=== PATIENT | female | born 1960 | race Caucasian/White ===

== ENCOUNTER 2025-03-06 07:23 | Outpatient (REF) | payer MEDICARE, MEDICAID, SELFPAY ==
--- NOTE | ~2025-03-06 | XR_ITS ---
EXAMINATION: XR PELVIS 1-2 VIEWS HISTORY: M25.559 - Pain in unspecified hip COMPARISON: There are no prior studies available for comparison. FINDINGS: Two views of the pelvis are submitted. Osseous mineralization is normal. There is no fracture or dislocation. There is severe osteoarthritis of the right hip with joint space narrowing, osteophyte formation, and remodeling of the femoral head. The left hip joint space is maintained. The soft tissues are unremarkable. XR/XR pelvis 1-2V IMPRESSION: Severe osteoarthritis of the right hip. Electronically signed by: Fco Sawyer MD 03/06/2025 11:21 AM EDT
--- OUTSIDE RECORDS SUMMARY | 2025-03-06 07:25 | XMS_ITS ---
Author Name [facility] Organization Unknown Encounters Encounter Type Encounter Reason Primary Diagnosis Location Date Ambulatory [facility] [place] 01/08/2025
== END 2025-03-06 07:24 | disposition home or self-care (01) ==
LOC: HO.HOSX 07:23
PROVIDERS: Visit Provider Orthopaedic Surgery
DX: M16.11 Unilateral primary osteoarthritis, right hip (principal); M25.551 Pain in right hip
CPT/HCPCS: 72170; 99202

== ENCOUNTER 2025-03-06 10:34 | Outpatient (AMB) | payer MEDICARE, MEDICAID, SELFPAY ==
--- NOTE | 2025-03-06 10:50 | A.OFFVIS_ITS ---
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 Patient reports that she has had on going pain since 1999. Her pain is felt on the Lateral aspect of the hip with occasional lower back pain that radia maurizio down the leg to the knee. She has occasional numbness with No tingling. She has Previously seen another Orthopedics provider who offered her no treatment. No history of injections or therapy. Currently she is taking Tramodol, Gabapentin and as well naproxen which offer her mild relief. Pain has increased over the last few years and is exacerbated with standing, walking, stairs and activities of daily living. She finds relief with laying down on the right side and sitting. 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 Patient reports that she has had on going pain since 1999. Her pain is felt on the Lateral aspect of the hip with occasional lower back pain that radiates down the leg to the knee. She has occasional numbness with No tingling. She has Previously seen another Orthopedics provider who offered her no treatment. No history of injections or therapy. Currently she is taking Tram odol, Gabapentin and as well naproxen which offer her mild relief. Pain has increased over the last few years and is exacerbated with standing, walking, stairs and activities of daily living. She finds relief with laying down on the right side and sitting. She walks with severe antalgia ( sttoped gait and a walker) and feels that the quality of her life is poor. [facility] Surgical History (Updated 03/06/25 @ 11:03 by MANDY Zeng-Jacque) History of hysterectomy (~10/2023) Social History (Updated 03/06/25 @ 11:03 by RYANN Zeng) Current occupational status: retired Physical Exam Extrem Other: Walks with severely stooped gait and right hip ROM is difficult to assess given pain and body habitus but it is minimal and with pain. uses a walker Firing EHL/TA/GC SILT RLE DP+2 Results Reviewed Results Reviewed: I personally reviewed relevant radiographs. Severe OA right hip with proximal migration and femoral head collapse Assessment & Plan Assessment & Plan (1) Osteoarthritis of right hip: Code(s): M16.11 - Unilateral primary osteoarthritis, right hip Category: Medical Plan: This is a very pleasant 64-year-old woman who delayed many years before seeking medical assistance for her right hip. She did see a surgeon many years ago who told her there was nothing he could do and that escalated her from pursuing a 2nd opinion. She finally comes in today and is miserable. She can not walk and she feels the quality of her life is extremely poor. Her radiographs show proximal migration of the femoral head with an eroded acetabulum and a question of posterior head subluxation although I suspect it is projectional. I will order a CT scan. She will follow up with me after that is done and we will discuss further. Orders: Orders XR pelvis 1-2V 03/06/25 M25.559 - Pain in unspecified hip CT hip RT wo IV con Today M16.11 - Unilateral primary osteoarthritis, right hip Coding Level of Care Code New Pt Level 4 (84709) Diagnoses Osteoarthritis of right hip M16.11
== END 2025-03-06 11:27 | disposition home or self-care (01) ==
LOC: HO.HOS 10:35
PROVIDERS: PCP Physician Assistant Medical; Visit Provider Orthopaedic Surgery
DX: M16.11 Unilateral primary osteoarthritis, right hip (principal)
CPT/HCPCS: 99204

== ENCOUNTER → 2025-03-06 10:40 | Outpatient (BNV) | payer MEDICARE, MEDICAID, SELFPAY | PROVIDERS: Visit Provider Radiology Diagnostic Radiology | DX: M16.11 Unilateral primary osteoarthritis, right hip (principal) | CPT/HCPCS: 72170 ==

== ENCOUNTER 2025-04-28 07:11 | Outpatient (REF) | payer MEDICARE, MEDICAID, SELFPAY ==
--- NOTE | ~2025-04-28 | CT_ITS ---
EXAMINATION: CT HIP WITHOUT CONTRAST, RIGHT CLINICAL INFORMATION: Unilateral primary osteoarthritis on the right hip. COMPARISON: Collated to pelvis x-ray dated March 06, 2025. TECHNIQUE: Multidetector volumetric imaging was obtained through the right hip without contrast material. Multiplanar reformatted images were submitted in coronal and sagittal planes. This CT examination was performed using dose optimization techniques as appropriate, variously including the following: *Automated exposure control *Adjustment of mA and/or kV according to patient size (this includes techniques or standardized protocols for targeted exams where dose is matched to indication/reason for exam; i.e. extremities or head) *Use of iterative reconstruction technique DLP: 563 mGy centimeter. FINDINGS: There is subchondral cyst formation and sclerosis along the articular surface of the acetabulum and femoral head with volume loss involving mostly the femoral head subcapital region with the marginal osteophyte formation both anterior and posterior: The acetabulum. There is joint space narrowing. No gross joint effusion detected by CT. There is fatty atrophy of the muscles, right hip. There is sclerosis of the sacroiliac joint and vacuum phenomenon. No acute cortical disruption. No lytic or blastic lesions. CT/CT hip RT wo IV con IMPRESSION: Severe osteoarthrosis/osteoarthritis, right coxofemoral joint. Electronically signed by: Israel Ayala MD 04/28/2025 09:09 AM EDT
== END 2025-04-28 07:12 | disposition home or self-care (01) ==
LOC: HO.CT 07:11
PROVIDERS: Visit Provider Orthopaedic Surgery
DX: M16.11 Unilateral primary osteoarthritis, right hip (principal)
CPT/HCPCS: 73700

== ENCOUNTER → 2025-04-28 07:14 | Outpatient (BNV) | payer MEDICARE, MEDICAID, SELFPAY | PROVIDERS: Visit Provider Radiology Diagnostic Radiology | DX: M16.11 Unilateral primary osteoarthritis, right hip (principal) | CPT/HCPCS: 73700 ==

== ENCOUNTER 2025-05-08 08:47 | Outpatient (AMB) | payer MEDICARE, MEDICAID, SELFPAY ==
--- NOTE | 2025-05-08 09:03 | A.OFFVIS_ITS ---
Intake Visit Reasons: OV-Right Hip CT Scan follow up Intake Note: Melisa is a 64 year old female who presents today for a follow up of her Right Hip OA - Ct Done 04/28/25. Today she would like to discuss surgical interventions IMPRESSION: Severe osteoarthrosis/osteoarthritis, right coxofemoral joint. Allergies No Known Allergies Allergy (Verified 03/06/25 10:58) HPI HPI OV-Right Hip CT Scan follow up: Details: Melisa is a 64 year old female who presents today for a follow up of her Right Hip OA - Ct Done 04/28/25. Today she would like to discuss surgical interve ntions. She uses a wheelchair when not at home but at home does limp around. this has been present for years and she has avoided medical care because of her weight. I saw her several weeks ago and ordered a CT as the plain films were difficult to interpret because of body position. The CT was perfromed and she comes in today for eval. She is in a wheelchair but describes being hopeful that she may be able to have her hip treated. She does describe being able to stand and take small steps at home but is severely limited. [facility] Surgical History (Updated 03/06/25 @ 11:03 by Azalea Najera) History of hysterectomy (~10/2023) Social History (Updated 03/06/25 @ 11:03 by Azalea Najera) Current occupational status: retired Physical Exam Exam Exam: pleasant woman in NAD moderate truncal obesity externally rotated right hip with limited and painful ROM. No IR and flexion to 80 Results Reviewed Results Reviewed: I personally reviewed relevant radiographs. There is severe right hip OA. The joint gross architecture is preserved with the arthritic head seated in the acetabulum Assessment & Plan Assessment & Plan (1) Osteoarthritis of right hip: Code(s): M16.11 - Unilateral primary osteoarthritis, right hip Category: Medical Plan: This is a 64 yo F with HTN, asthma and obesity. She is disabled because of the severity of her OA. She uses a wheelchair when out of the house. Her imaging initially suggested proximal migration of the head but CT shows no subluxation. Given the severity of her disease and the extent of her disability I recommendright FLORENTINO. I will need labs and more medical information from her PCP. I explained my recommendation to her. I described the alternatives as well as the details of surgery and the eexp[ected recovery. I spent time discussing the risks with her. I discussed the risks of, but not limited to the risk of pain, infection, dislocation, fracture, LLD, stiffness, need for further surgery as well as potential medical complications such as blood clots, pulmonary embolism and cardiac complications. She understands this and would like to proceed forward accordingly. We will begin the pre operative process. Coding Level of Care Code Est Pt Level 4 (48845) Diagnoses Osteoarthritis of right hip M16.11
--- OUTSIDE RECORDS SUMMARY | 2025-05-08 09:07 | XMS_ITS | Patient Health Record ---
Author Organization [facility] Address [address] [place] [address] Care Team Providers Care Executive Asst Name Role Phone May Driscoll MD, Parisa Primary Care Provider U sanjuana Aguillon MD, [facility] Allergies Allergen (clinical drug ingredient) Drug/Non Drug Allergy documented on EMR Reaction Allergy Type Onset Date Status Information temporarily unavailable seasonal (uncoded) Unknown Allergy Active Information temporarily unavailable Ambien wakes being very tired Drug Allergy Active Information temporarily unavailable aspirin stomach burning Drug Allergy Active Reason For Referral No Information Medications Medication SIG (Take, Route, Frequency, Duration) Notes Start Date End Date Status Vitamin B12 100 mcg 1 tab(s) orally once a day; Duration: 30 day(s) Active Singulair 10 mg 1 tab QPM Acti ve Symbicort 160 mcg-4.5 mcg/inh 2 puff(s) inhaled 2 times a day; Duration: 30 day(s) Activ e albuterol 2.5 mg/3 mL (0.083%) 3 ml inhaled every 4-6 hours as needed; Duration: 30 days Active Glucosamine and Chondroitin with MSM 400 mg-500 mg-250 mg 1 tab(s) orally 3 times a day Active Ventolin HFA CFC free 90 mcg/inh 2 puff(s) inhaled qid prn; Duration: 30 day(s) Active fluticasone nasal 50 mcg/inh 1 spray(s) intranasally once a day; Duration: 30 day(s) Active furosemide 20 mg 1 tab(s) orally once a day; Duration: 30 day(s) Active Vitamin D3 1000 intl units 1 tab(s) oral ly once a day; Duration: 30 day(s) Active gabapentin 300 mg 1 cap(s) orally 3 ti mes a day; Duration: 30 day(s) Active bupropion 150 mg/24 hours 1 tab(s) orall y every 24 hours Active folic acid 1 mg 1 tab(s) orally once a day; Duration: 30 day(s) Active allopurinol 300 mg 1 tab(s) orally Daily Active Immunizations Vaccine Route Administration Date Status Comme nts Influenza ID (IIV3) PF 18 64 LSMV ID Intradermal 08/01/2013 Administered Influenza IM split virus PF >3 (LSMV) Unknown 07/20/2011 Administered Influenza Seasonal (Previously Received) Unknown 07/12/2012 Administered Influenza Seasonal (Previously Received) Unknown 06/02/2014 Administered Influenza Seasonal (Previously Received) Unknown 06/15/2015 Administered Influenza Seasonal (Previously Received) Unknown 06/02/2018 Administered Pneumovax PPV23 (Previously Received) Unknown 06/02/2014 Administered Pneumovax PPV23 LSMV Unknown 07/20/2011 Administered Problems Problem Type SNOMED Code ICD Code Onset Dates Problem Status W/U Status Risk Notes Problem Seasonal allergy (991906639) Environmental and seasonal allergies (J30.89) Active confirmed Problem Obstructive sleep apnea (95036583) Obstructive sleep apnea (G47.33) Active confirmed Problem Uncomplicated severe persistent asthma (093096838) Uncomplicated severe persistent asthma (J45.50) Active confirmed Problem Exacerbation of moderate persistent asthma (disorder) (055717576) Moderate persistent asthma with exacerbation (J45.41) Active confirmed Plan Of Treatment Pending Test Test Name Order Date ICD List 05/02/2016 Insurance Providers Payer Name Payer Address Payer Phone Subscriber Number Group Number Insured Name Patient Relationship to Insured Coverage Start Date Coverage End Date Medicare B-[place] [address] [place] [phone] [id number] JEAN CAMPOS Self - patient is the insured 7 Medicaid- [place] ATTN: ORIGINAL PAPER CLAIMS SUBMISSION S [address] [place] [phone] [id number] JEAN CAMPOS Self - patient is the insured Aetna \T\ Aetna/ Healthcar e [address] [place] [phone] [id number] JEAN CAMPOS Self - patient is the insured 7 Medical (General) History Medical History History ICD Code asthma environmental allergies REM related SAMIR Esophageal reflux hypertension restless leg syndrome migraines insomnia cancer, uterine morbid obesity Lyme Disease depression arthritis in left hip Surgical History Surgery Date(Month/Year) hysterectomy 1993 wisdom teeth extraction Hospitalization History Reason Date(Month/Year) asthma exacerbation 11/2012 pneumonia as a child SOB and Asthma Attack 04/2015 ED- asthma attack via ambulance 05/2015 Janeth rendon/Juanita 08/2017 Heart and Breathing Issues // [facility] 06/2018
--- OUTSIDE RECORDS SUMMARY | 2025-05-08 09:07 | XMS_ITS ---
Author Name [facility] Organization Unknown Encounters Encounter Type Encounter Reason Primary Diagnosis Location Date Ambulatory [facility] [place] 01/08/2025
== END 2025-05-08 10:02 | disposition home or self-care (01) ==
LOC: HO.HOS 08:47
PROVIDERS: Visit Provider Orthopaedic Surgery
DX: M16.11 Unilateral primary osteoarthritis, right hip (principal)
CPT/HCPCS: 99214

== ENCOUNTER → 2025-05-08 08:47 | Outpatient (BNVA) | payer MEDICARE, MEDICAID, SELFPAY | PROVIDERS: Visit Provider Orthopaedic Surgery | DX: Z71.2 Person consulting for explanation of examination or test findings (principal); M16.11 Unilateral primary osteoarthritis, right hip; J45.909 Unspecified asthma, uncomplicated; E66.9 Obesity, unspecified | CPT/HCPCS: 99212 ==

== ENCOUNTER 2025-08-26 08:38 | Outpatient (AMB) | payer MEDICARE, MEDICAID, SELFPAY ==
--- OUTSIDE RECORDS SUMMARY | 2025-08-26 08:58 | XMS_ITS | Clinical Summary ---
Author Organization [facility] Address [address] [place] [address] Care Team Providers Care Cable Armorer Name Role Phone Parisa Padilla MD Primary Care Provider + Parisa Padilla MD Unavailable [phone] Parisa Padilla MD Unavailable [phone] Social History Tobacco Use Types Packs/Day Years [...] of Treatment Not on file Care Teams Cable Armorer Relationship Specialty Start Date End Date Parisa Padilla MD [address] [place] [address] [facility] - General 11/05/21 Parisa Padilla MD [address] [place] [address] 11/05/21 Parisa Padilla MD [address] [place] [address] 11/05/21
--- NOTE | 2025-08-26 09:20 | A.OFFVIS_ITS ---
Intake Visit Reasons: Pre-Op: R FLORENTINO w/NE 09/02/25 Intake Note: Fany is a 65 year old female who presents today for a pre operative for her right total hip arthroplasty 09/03/[address] Yu. Patient was given the pain management form to be completed. Allergies ephedrine (From Tedral) Allergy (Verified 08/26/25 09:21) Vomiting fish derived (fish) Allergy (Verified 08/26/25 09:21) Hives phenobarbital (From Tedral) Allergy (Verified 08/26/25 09:21) Vomiting theophylline (From Tedral) Allergy (Verified 08/26/25 09:21) Vomiting HPI HPI Pre-Op: R FLORENTINO w/NE 09/02/25: Details: The patient is a 65-year-old female with a history of end-stage osteoarthritis of the right hip who is scheduled for a total hip arthroplasty. They have experienced progressive hip pain since 1999. Her pain is described as an 8/10 and worsened by prolonged standing, walking, and stair climbing. Conservative treatments including NSAID and activity modification provided only temporary or minimal relief. The patient reports significant limitations in daily activities and decreased quality of life due to pain and stiffness. No recent history of trauma or infection. They are otherwise in their usual state of health. Of note, the patient does have a past medical history significant for ovarian cancer status post hysterectomy on 10/2023 currently on letrozole. Additionally, she has a past medical history of hypertension, GERD, hiatal hernia, gout, Lyme disease, depression, SAMIR, RA, RLS, vitamin-D deficiency, HLD, obesity and asthma. Of note, CKD was listed in the [facility] preoperative juana mary jo however the patient states that she does not have any kidney disease, does note see a reduction furnace operator and is able to take NSAIDs. The patient was seen at the [facility] preoperative clinic on 07/17/2025 and was found to be optimized with ?no absolute medical contraindications identified to proceeding with the proposed surgery?. ON LICENSE OF [facility] Medical History (Updated 08/05/25 @ 13:51 by Beronica Faria RN) Arthritis Numbness Vitamin D deficiency Asthma Right sided weakness Restless leg syndrome Depression Ovarian cancer, bilateral Sleep apnea Multiple pulmonary nodules History of chemotherapy Lytic bone lesion of femur Insomnia Lyme disease Gout Hiatal hernia Hypercalcemia GERD (gastroesophageal reflux disease) HTN (hypertension) Obesity Carpal tunnel syndrome Bilateral tinnitus Aromatase inhibitor use Abdominal wall seroma Surgical History (Updated 08/05/25 @ 13:51 by Beronica Faria RN) History of wisdom tooth extraction History of esophagogastroduodenoscopy (EGD) H/O colonoscopy Hx of cardiac catheterization (~04/28/22) Hx of appendectomy History of hysterectomy (~10/2023) Social History (Updated 08/26/25 @ 09:21 by Mary Carmen Delarosa) Are you a primary career placement services counselor to a significant other at home: No Do you presently have visiting nurse or other home services: No Alcohol intake: never Patient Tobacco Use Status: Never used Tobacco Current occupational status: retired Current occupation: right hand dominant Review of Systems Const All systems reviewed & are unremarkable except as noted in HPI and below Physical Exam Const General: cooperative, healthy appearing and no acute distress Resp Effort & Inspection: normal respiratory effort and able to speak in complete sentences Extrem Other: Right hip: Externally rotated. Limited internal and external rotation. Flexion to 80. NVI. Psych Appearance: grossly normal Mental Status: mental status grossly normal Attitude: cooperative Assessment & Plan Assessment & Plan (1) Osteoarthritis of right hip: Code(s): M16.11 - Unilateral primary osteoarthritis, right hip Category: Medical Plan I discussed in detail the procedure and what to expect pre and post operatively. We discussed the risks, benefits and alternatives to the surgery as well as the rehabilitation course. The following topics were reviewed in detail with the patient: Risks: Risks include, but are not limited to infection, bleeding, blood clots, nerve injury, ongoing pain, ongoing swelling, ongoing stiffness, perioperative risk of injury to bones and soft tissues, prosthesis loosening or wear, anesthesia related complications, revision surgery, amputation, and mortality. Expected Benefits: Improved function, reduced pain, better quality of life. Alternatives: Continued non-operative treatment, joint injections, bracing, physical therapy or no surgery. Risks of not moving forward with surgery: Progression of joint disease and damage, worsening function, fracture, and/or pain. The patient had ample opportunity to ask questions. All questions were answered to the patient's satisfaction. The patient verbalized understanding and agreed to move forward with right total hip arthroplasty with Dr. Yu. The patient demonstrates understanding of the risks, benefits and alternatives. The surgical consent form was given to the patient for additional review and signed by the patient with myself as a witness. postoperative recovery notes: Lovenox for DVT ppx postop Patient has walker at home Plan to go home with services post operatively Physical therapy: [facility] - will need transportation Orders: Orders Basic Metabolic Panel Today Z01.818 - Encounter for other preprocedural examination Complete Blood Count no Diff Today Z01.818 - Encounter for other preprocedural examination Type and Screen Today Z01.818 - Encounter for other preprocedural examination Coding Level of Care Code Global (87664) Diagnoses Osteoarthritis of right hip M16.11
== END 2025-08-26 10:11 | disposition home or self-care (01) ==
LOC: HO.HOS 08:38
PROVIDERS: Visit Provider Physician Assistant
DX: M16.11 Unilateral primary osteoarthritis, right hip (principal)
CPT/HCPCS: 99024

== ENCOUNTER → 2025-08-26 08:38 | Outpatient (BNVA) | payer MEDICARE, MEDICAID, SELFPAY ==
--- OUTSIDE RECORDS SUMMARY | 2025-08-26 13:55 | XMS_ITS | Patient Health Record ---
Author Organization [facility] Address [address] [place] [id number] Care Team Providers Care Receiving Manager Name Role Phone May Driscoll MD, Parisa Primary Care Provider U sanjuana Aguillon MD, [facility] Allergies Allergen (clinical drug ingredient) Drug/Non [...] Route Administration Date Status Comme nts Influenza IM split virus PF >3 (LSMV) Unknown 07/20/2011 Administered Pneumovax PPV23 [facility] Unknown 07/20/2011 Administered Influenza ID (IIV3) PF 18 64 [facility] ID Intradermal 08/01/2013 Administered Influenza Seasonal (Previously Received) Unknown 07/12/2012 Administered Influenza Seasonal (Previously Received) Unknown 06/02/2014 Administered Influenza Seasonal (Previously Received) Unknown 06/15/2015 Administered Influenza Seasonal (Previously Received) Unknown 06/02/2018 Administered Pneumovax PPV23 (Previously Received) Unknown 06/02/2014 Administered Problems Problem Type SNOMED Code ICD Code Onset Dates Problem Status W/U Status Risk Notes Problem Seasonal allergy (793484072) Environmental and seasonal allergies (J30.89) Active confirmed Problem Obstructive sleep apnea (64652794) Obstructive sleep apnea (G47.33) Active confirmed Problem Uncomplicated severe persistent asthma (913856912) Uncomplicated severe persistent asthma (J45.50) Active confirmed Problem Exacerbation of moderate persistent asthma (disorder) (896238261) Moderate persistent asthma with exacerbation (J45.41) Active confirmed Plan Of Treatment Pending Test Test Name Order Date ICD List 05/02/2016 Insurance Providers Payer Name Payer Address Payer Phone Subscriber Number Group Number Insured Name Patient Relationship to Insured Coverage Start Date Coverage End Date Medicare [employer] [address] [place] [phone] [id number] JEAN CAMPOS Self - patient is the insured 7 Medicaid- [place] ATTN: ORIGINAL PAPER CLAIMS SUBMISSION S [address] [place] [phone] [id number] JEAN CAMPOS Self - patient is the insured Aetna \T\ Aetna/ Healthcar e [address] [place] [id number] JEAN CAMPOS Self - patient is [...] rendon/Juanita 08/2017 Heart and Breathing Issues // [facility] 06/2018
== END ==
LOC: CF 10:48
PROVIDERS: Visit Provider Physician Assistant
DX: Z01.818 Encounter for other preprocedural examination (principal); M16.11 Unilateral primary osteoarthritis, right hip
CPT/HCPCS: 99212

== ENCOUNTER 2025-09-02 08:00 | Day surgery (SDC) | payer MEDICARE, OTHER, SELFPAY ==
--- OUTSIDE RECORDS SUMMARY | 2025-07-31 15:01 | XMS_ITS | Patient Health Record ---
Author Organization [facility] Address [address] [place] [address] Care Team Providers Care Purchase Price Analyst Name Role Phone May Driscoll MD, Parisa Primary Care Provider U sanjuana Aguillon MD, [facility] Allergies Allergen (clinical drug ingredient) Drug/Non Drug Allergy documented on EMR Reaction Allergy Type Onset Date Status seasonal (uncoded) Unknown Allergy A ctive zolpidem Ambien wakes being very tired Drug Allergy Active aspirin aspirin stomach burning Drug Allergy A ctive Reason For Referral No Information Medications Medication [...] W/U Status Risk Notes Problem Seasonal allergy (981728168) Environmental and seasonal allergies (J30.89) Active confirmed Problem Obstructive sleep apnea (86145847) Obstructive sleep apnea (G47.33) Active confirmed Problem Uncomplicated severe persistent asthma (954918389) Uncomplicated severe persistent asthma (J45.50) Active confirmed Problem Exacerbation of moderate persistent asthma (disorder) (237097837) Moderate persistent asthma with exacerbation (J45.41) Active confirmed Plan Of Treatment Pending Test Test Name Order Date ICD List 05/02/2016 Insurance Providers Payer Name Payer Address Payer Phone Subscriber Number Group Number Insured Name Patient Relationship to Insured Coverage Start Date Coverage End Date Medicare [place] [address] [place] [phone] [id number] JEAN CAMPOS Self - patient is the insured 7 [place]- [place] ATTN: ORIGINAL PAPER CLAIMS SUBMISSION S [address] [place] [phone] [id number] JEAN CAMPOS Self - patient is the insured Aetna \T\ Aetna/ Healthcar e [address] [place] [id number] JEAN CAMPOS Self - patient is [...] rendon/Juanita 08/2017 Heart and Breathing Issues // [facility] 06/2018
--- OUTSIDE RECORDS SUMMARY | 2025-07-31 15:01 | XMS_ITS | Clinical Summary ---
Author Organization [facility] Address [address] [facility] [address] [place] [address] Care Team Providers Care Activities Aide Name Role Phone Parisa Padilla MD Primary Care Provider + Parisa Padilla MD Unavailable [phone] Parisa Padilla MD Unavailable Social History Tobacco Use Types Packs/Day Years Used Date Smoking Tobacco: Never Assessed Comments Unknown Sex and Gender Information Value Date Recorded Sex Assigned at Female 11/29/2021 5:11 PM EST Legal Sex Female 12:52 AM EST Gender Identity Not on file Sexual Orientation Not on file Last Filed Vital Signs Vital Sign Reading Time Taken Comments Blood Pressure 155/82 10/07/2020 2:20 PM EST Pulse 92 10/07/2020 2:20 PM EST Temperature 36.7 C (98.1 F) 10/07/2020 5:35 PM EST Respiratory Rate 18 10/07/2020 6:13 PM EST Oxygen Saturation 96% 10/07/2020 6:13 PM EST Inhaled Oxygen Concentration - - Weight 145 kg (319 lb 10.7 oz) 10/07/2020 3:50 P M EST Height 162 cm (5' 3.78 ) 10/07/2020 3:50 PM EST Body Mass Index 55.25 10/07/2020 3:50 PM EST Plan of Treatment Not on file Care Teams Activities Aide Relationship Specialty Start Date End Date Parisa Padilla MD [address] [place] [address] [facility] - General 11/05/21 Parisa Padilla MD [address] [place] [address] 11/05/21 Parisa Padilla MD [address] [place] [address] 11/05/21
[2025-08-05 13:17] VITALS: BP 139/72; PULSE 68; RESP 17; O2SAT 95; BMI 40.9
--- NOTE | 2025-08-05 13:43 | HO.ANESPROP2 ---
Documented by User: Violet Sweet NP 09/01/25 07:57 HPI - Anesthesia Eval Consult details Narrative: 65yo F for Right Hip Total Replacement, 09/03/25 Medically optimized per [facility] preop clinic No recent illness No CP/SOB with activity very limited by hip pain 2021 with palps, SOB, dizziness. Full work up by [facility] cardiology. No recurrence since BP meds adjusted. ? of afib, but none identified on testing Asthma: Stable on current inhaler regimen SAMIR: Not using CPAP because less symptoms. Pending repeat PSG Hiatal hernia/GERD: ppi controls Hx ovarian ca s/p hyst, etc 10/2023, on letrozole PMFSH Active Problems Active Problems: All Active Problems Osteoarthritis of right hip (Acute) Past Medical History Medical History Arthritis Numbness Vitamin D deficiency Asthma Right sided weakness Restless leg syndrome Depression Ovarian cancer, bilateral Sleep apnea Multiple pulmonary nodules History of chemotherapy Lytic bone lesion of femur Insomnia Lyme disease Gout Hiatal hernia Hypercalcemia GERD (gastroesophageal reflux disease) HTN (hypertension) Obesity Carpal tunnel syndrome Bilateral tinnitus Aromatase inhibitor use Abdominal wall seroma Family History Family history of problems with anesthesia: No Surgical History Surgical History History of wisdom tooth extraction History of esophagogastroduodenoscopy (EGD) H/O colonoscopy Hx of cardiac catheterization (~04/28/22) Hx of appendectomy History of hysterectomy (~10/2023) History of Problems with Anesthesia: No Social History Social History Are you a primary career center advisor to a significant other at home: No Do you presently have visiting nurse or other home services: No Alcohol intake: never Patient Tobacco Use Status: Never used Tobacco Use of substances other than those prescribed or required for medical reasons: No Advance Directives: No Advance Directives Information Provided: Yes Advance Directives on File: No Patient : No : No Current occupational status: retired Current occupation: right hand dominant Meds Allergies Allergy/AdvReac Type Severity Reaction Status Date / Time ephedrine (From Tedral) Allergy Vomiting Verified 08/26/25 09:21 fish derived (fish) Allergy Hives Verified 08/26/25 09:21 phenobarbital (From Tedral) Allergy Vomiting Verified 08/26/25 09:21 theophylline (From [facility]) Allergy Vomiting Verified 08/26/25 09:21 Home Medications ?Medication ?Instructions ?Recorded ?Confirmed ?Last Taken ?Type albuterol sulfate 90 mcg/actuation 2 puff inhalation Q4-6H PRN 03/06/25 08/05/25 Unknown History aerosol inhaler Shortness Of Breath Or Wheezing allopurinol 100 mg tablet 100 mg PO DAILY 03/06/25 08/05/25 Unknown History atorvastatin 40 mg tablet 40 mg PO BEDTIME 03/06/25 08/05/25 Unknown History bupropion HCl (smoking deter) 150 150 mg PO BID 03/06/25 08/05/25 Unknown History mg tablet,12 hr sustained-release(smoking deterrent) citalopram 40 mg tablet 40 mg PO DAILY 03/06/25 08/05/25 Unknown History fluticasone fur. 200 mcg-umeclid 1 ea inhalation DAILY 03/06/25 08/05/25 Unknown History 62.5 mcg-vilant 25 mcg inhalat.powder (Trelegy Ellipta) gabapentin 300 mg capsule 300 mg PO BEDTIME 03/06/25 08/05/25 Unknown History letrozole 2.5 mg tablet 2.5 mg PO DAILY 03/06/25 08/05/25 Unknown History montelukast 10 mg tablet 10 mg PO DAILY 03/06/25 08/05/25 Unknown History naproxen 250 mg tablet 250 mg PO BID PRN Pain 03/06/25 08/05/25 Unknown History omeprazole 20 mg capsule,delayed 20 mg PO DAILY 03/06/25 08/05/25 Unknown History release spironolactone 100 mg tablet 100 mg PO BID 03/06/25 08/04/25 Unknown History tramadol 50 mg tablet 100 mg PO BID PRN Pain 03/06/25 08/04/25 Unknown History cholecalciferol (vitamin D3) 25 25 mcg PO DAILY 08/04/25 08/05/25 Unknown History mcg (1,000 unit) tablet cyanocobalamin (vitamin B-12) 100 100 mcg PO DAILY 08/04/25 08/05/25 Unknown History mcg tablet fluticasone propionate 50 1 spray intranasal DAILY 08/04/25 08/05/25 Unknown History mcg/actuation nasal spray,suspension furosemide 20 mg tablet 20 mg PO DAILY 08/04/25 08/05/25 Unknown History albuterol sulfate 1.25 mg/3 mL 1.25 mg inhalation Q4-6H PRN 08/05/25 08/05/25 Unknown History solution for nebulization Wheezing polyethylene glycol 3350 17 gram 17 g PO DAILY PRN Constipation 08/05/25 08/05/25 Unknown History oral powder packet (Miralax) Exam Height,Weight and Vital Signs: Height 5 ft 7 in Weight 118.388 kg Last Vital Signs Pulse 68 08/05/25 13:17 Resp 17 08/05/25 13:17 BP 139/72 08/05/25 13:17 Pulse Ox 95 08/05/25 13:17 O2 Del Method Room Air 08/05/25 13:17 Pertinent Lab Results Pertinent Lab Results: Hematology ? ? Event Name? Event Result? Date/Time? WBC 8.3 k/mm3 07/17/25 10:55:00 RBC 4.25 m/mm3 07/17/25 10:55:00 Hgb 13.2 Gm/dL 07/17/25 10:55:00 Hct 39.5 % 07/17/25 10:55:00 MCV 92.9 femtoliters 07/17/25 10:55:00 MCH 31.1 pg 07/17/25 10:55:00 MCHC 33.4 Gm/dL 07/17/25 10:55:00 Platelet Count 299 k/mm3 07/17/25 10:55:00 RDW-SD 40.6 femtoliters 07/17/25 10:55:00 MPV 10.6 femtoliters 07/17/25 10:55:00 Nucleated RBC (Automated) 0 #/100 WBC'S 07/17/25 10:55:00 Abs. NRBC 0 k/mm3 07/17/25 10:55:00 Abs. Neut 5.6 k/mm3 07/17/25 10:55:00 Abs. Lymph 2 k/mm3 07/17/25 10:55:00 Abs. [place] 0.4 k/mm3 07/17/25 10:55:00 Abs. Eo 0.3 k/mm3 07/17/25 10:55:00 Abs. Baso 0 k/mm3 07/17/25 10:55:00 Neut % 67.2 % 07/17/25 10:55:00 Lymph % 24.2 % 07/17/25 10:55:00 [place] % 4.2 %?Low 07/17/25 10:55:00 Eos % 3.4 % 07/17/25 10:55:00 Baso % 0.5 % 07/17/25 10:55:00 Imm Gran 0.5 % 07/17/25 10:55:00 Abs. Imm Gran 0 k/mm3 07/17/25 10:55:00 INR 1 07/17/25 10:55:00 Protime (PT) 11.1 seconds 07/17/25 10:55:00 APTT 23.6 seconds 07/17/25 10:55:00 ? Chemistry ? ? Event Name? Event Result? Date/Time? Sodium 142 mmol/L 07/17/25 10:55:00 Potassium 4.4 mmol/L 07/17/25 10:55:00 Chloride 104 mmol/L 07/17/25 10:55:00 Bicarbonate Level 25 mmol/L 07/17/25 10:55:00 Anion Gap 13 mmol/L 07/17/25 10:55:00 Glucose Level 94 mg/dL 07/17/25 10:55:00 Hemoglobin A1C (Monitoring) 5.3 % 07/17/25 10:55:00 BUN 12 mg/dL 07/17/25 10:55:00 Creatinine-Blood 0.68 mg/dL 07/17/25 10:55:00 Estimated GFR Creatinine 97 ML/MIN/1.73 M2 07/17/25 10:55:00 Calcium 10.2 mg/dL 07/17/25 10:55:00 Lab Results 08/05/25 08/26/25 08/26/25 Range/Units 12:50 10:54 10:57 WBC 9.9 (4.8-10.8) X10*3/uL RBC 4.19 L (4.20-5.50) X10*6/uL Hgb 13.1 (12.0-16.0) g/dl Hct 39.7 (37.0-47.0) % MCV 94.7 (80.0-98.0) fL MCH 31.3 (27.0-33.0) pg MCHC 33.0 (31.0-35.0) g/dl RDW 12.2 (11.0-16.0) % Plt Count 253 (160-400) X10*3/uL MPV 10.1 (9.4-12.3) fL Absolute Nucleated RBC 0.000 (0.0-0.012) X10*3/uL Nucleated RBC % (auto) 0.0 (0.0-0.2) /100WBC Sodium 140 (135-145) mmol/L Potassium 4.8 (3.3-5.1) mmol/L Chloride 105 (96-108) mmol/L Carbon Dioxide 27 (22-29) mmol/L Anion Gap 13 (12-20) BUN 21 H (9-16) mg/dL Creatinine 0.83 (0.5-1.4) mg/dL Estim Creat Clear Calc 89.9 Estimated GFR > 60 Random Glucose 134 H (60-115) mg/dL Calcium 10.2 (8.4-10.2) mg/dL Nasal Screen MRSA (PCR) NEGATIVE (Negative) Nasal S. aureus Screen POSITIVE A (Negative) Nasal MRSA/S.aureus Interp SEE NOTE Blood Type A Positive Antibody Screen NEGATIVE Narrative Narrative: EKG 07/2025 Ventricular Rate: 67 ?BPM Atrial Rate: 67 ?BPM P-R Interval: 164 ?ms QRS Duration: 82 ?ms Q-T Interval: 390 ?ms QTC Calculation(Bazett): 412 ?ms P Bertrand: 62 ?degrees R Bertrand: 35 ?degrees T Bertrand: 76 ?degrees Poor data quality, interpretation may be adversely affected Normal sinus rhythm Normal ECG When compared with ECG of 04-Oct-2023 20:15, No significant change was found?[1] ECHO 2021 Summary Normal LV systolic function (EF 60-65%). No significant regional wall motion abnormalities. Normal LV diastolic function. Normal size LV. Mildly increased LV wall thickness. Normal RV systolic function. Normal RV size. No clinically significant valvular abnormalities. Comparison Comparison is made to the study of November 04, 2020. Improved RV systolic function. Nuc Stress 2021 Summary 1. Myocardial perfusion imaging is abnormal after Regadenoson infusion with a large size mod/severe intensity inferior/inferolateral mostly reversible defect consistent with ischemia with minimal scar and a small/moderate size moderate intensity septal defect consistent with ischemia. 2. LV function is normal with an E.F. of 71% at rest and 74% after IV administration of Regadenoson with normal wall motion and thickening. 3. EKG portion of the stress test is reported separately. Airway Mallampati Class: II TM Dist: >3cm Neck ROM: Full Loose/Missing/Broken Teeth: Yes (Missing throughout, Broken R upper) Heart: RRR Lungs: CTAB Assessment and Plan Assessment Anesthesia Assessment: Anesthesia Plan Discussed and PAT Visit Final Anesthetic Review Family History of Problems with Anesthesia: No History of Problems with Anesthesia: No Documented by User: Victorina Lowery MD 09/02/25 08:32 [facility] Past Medical History Medical History Arthritis Numbness Vitamin D deficiency Asthma Right sided weakness Restless leg syndrome Depression Ovarian cancer, bilateral Sleep apnea Multiple pulmonary nodules History of chemotherapy Lytic bone lesion of femur Insomnia Lyme disease Gout Hiatal hernia Hypercalcemia GERD (gastroesophageal reflux disease) HTN (hypertension) Obesity Carpal tunnel syndrome Bilateral tinnitus Aromatase inhibitor use Abdominal wall seroma Surgical History Surgical History History of wisdom tooth extraction History of esophagogastroduodenoscopy (EGD) H/O colonoscopy Hx of cardiac catheterization (~04/28/22) Hx of appendectomy History of hysterectomy (~10/2023) Social History Social History Are you a primary career center advisor to a significant other at home: No Do you presently have visiting nurse or other home services: No Alcohol intake: never Patient Tobacco Use Status: Never used Tobacco Use of substances other than those prescribed or required for medical reasons: No Advance Directives: No Advance Directives Information Provided: Yes Advance Directives on File: No Patient : No : No Current occupational status: retired Current occupation: right hand dominant Meds Allergies Allergy/AdvReac Type Severity Reaction Status Date / Time ephedrine (From [facility]) Allergy Vomiting Verified 08/26/25 09:21 fish derived (fish) Allergy Hives Verified 08/26/25 09:21 phenobarbital (From [facility]) Allergy Vomiting Verified 08/26/25 09:21 theophylline (From [facility]) Allergy Vomiting Verified 08/26/25 09:21 Home Medications ?Medication ?Instructions ?Recorded ?Confirmed ?Last Taken ?Type albuterol sulfate 90 mcg/actuation 2 puff inhalation Q4-6H PRN 03/06/25 08/05/25 Unknown History aerosol inhaler Shortness Of Breath Or Wheezing allopurinol 100 mg tablet 100 mg PO DAILY 03/06/25 08/05/25 Unknown History atorvastatin 40 mg tablet 40 mg PO BEDTIME 03/06/25 08/05/25 Unknown History bupropion HCl (smoking deter) 150 150 mg PO BID 03/06/25 08/05/25 Unknown History mg tablet,12 hr sustained-release(smoking deterrent) citalopram 40 mg tablet 40 mg PO DAILY 03/06/25 08/05/25 Unknown History fluticasone fur. 200 mcg-umeclid 1 ea inhalation DAILY 03/06/25 08/05/25 Unknown History 62.5 mcg-vilant 25 mcg inhalat.powder (Trelegy Ellipta) gabapentin 300 mg capsule 300 mg PO BEDTIME 03/06/25 08/05/25 Unknown History letrozole 2.5 mg tablet 2.5 mg PO DAILY 03/06/25 08/05/25 Unknown History montelukast 10 mg tablet 10 mg PO DAILY 03/06/25 08/05/25 Unknown History naproxen 250 mg tablet 250 mg PO BID PRN Pain 03/06/25 08/05/25 Unknown History omeprazole 20 mg capsule,delayed 20 mg PO DAILY 03/06/25 08/05/25 Unknown History release spironolactone 100 mg tablet 100 mg PO BID 03/06/25 08/04/25 Unknown History tramadol 50 mg tablet 100 mg PO BID PRN Pain 03/06/25 08/04/25 Unknown History cholecalciferol (vitamin D3) 25 25 mcg PO DAILY 08/04/25 08/05/25 Unknown History mcg (1,000 unit) tablet cyanocobalamin (vitamin B-12) 100 100 mcg PO DAILY 08/04/25 08/05/25 Unknown History mcg tablet fluticasone propionate 50 1 spray intranasal DAILY 08/04/25 08/05/25 Unknown History mcg/actuation nasal spray,suspension furosemide 20 mg tablet 20 mg PO DAILY 08/04/25 08/05/25 Unknown History albuterol sulfate 1.25 mg/3 mL 1.25 mg inhalation Q4-6H PRN 08/05/25 08/05/25 Unknown History solution for nebulization Wheezing polyethylene glycol 3350 17 gram 17 g PO DAILY PRN Constipation 08/05/25 08/05/25 Unknown History oral powder packet (Miralax) Assessment and Plan Assessment Anesthesia Assessment: Chart Reviewed Final Anesthetic Review NPO: Yes ASA Class: III Final Preanesthetic Review: No Changes in Pt Med Stat, Meds/Allgs Chart Reviewed, Consent Obtained/Reviewed and Anes Risks/Benef Reviewed Patient Risk: Intermediate Procedure Risk: Intermediate Anesthetic Plan Anesthetic Plan: GA and Agree w/ Assess. and Plan Disposition: Standard PACU
[2025-08-05 16:06] LABS: MRSA Nasal PCR NEGATIVE (Negative); SA Nasal PCR POSITIVE (Negative)
[2025-08-26 11:40] LABS: Hematocrit 39.7 % (37.0-47.0); Hemoglobin 13.1 g/dl (12.0-16.0); Mean Corpuscular HGB Conc 33.0 g/dl (31.0-35.0); Mean Corpuscular Hemoglobin 31.3 pg (27.0-33.0); Mean Corpuscular Volume 94.7 fL (80.0-98.0); NRBC Abs Auto 0.000 X10*3/uL (0.0-0.012); NRBC Pct Auto 0.0 /100WBC (0.0-0.2); Platelet Count 253 X10*3/uL (160-400); Red Blood Count 4.19 X10*6/uL (4.20-5.50); White Blood Count 9.9 X10*3/uL (4.8-10.8)
[2025-08-26 12:28] LABS: Anion Gap 13 (12-20); Blood Urea Nitrogen 21 mg/dL (9-16); Calcium 10.2 mg/dL (8.4-10.2); Carbon Dioxide 27 mmol/L (22-29); Chloride 105 mmol/L (96-108); Creatinine Clr Calc Pharmacy 89.9; Estimated Glomerular Filt Rate > 60; Potassium 4.8 mmol/L (3.3-5.1); Sodium 140 mmol/L (135-145)
[2025-09-02] VITALS (11 sets, daily range): BP systolic 121–151; BP diastolic 48–93; PULSE 56–68; RESP 9–20; TEMP 36.1–36.8; O2SAT 92–100; BMI 41.1; BMI 40.9
--- NOTE | ~2025-09-02 | XR_ITS ---
EXAMINATION: XR PELVIS CLINICAL INFORMATION: Rt ángela COMPARISON: March 06, 2025 TECHNIQUE: AP view of the pelvis. FINDINGS: There is a metallic right hip prosthesis with an acetabular and femoral component well-seated in the osseous structures without acute cortical disruption or gross malalignment. Skin calvin, right hip. XR/XR pelvis 1-2V IMPRESSION: Status post total right hip arthroplasty prosthesis, satisfactory. Electronically signed by: Israel Ayala MD 09/02/2025 02:05 PM ANNA MARIE BOLANOS
[2025-09-02] MEDS: oxyCODONE HCl ER 10 MG TAB.ER.12H PO ×2 (08:41→20:35)
[2025-09-02 09:06] LABS: Hematocrit 42.5 % (37.0-47.0); Hemoglobin 14.2 g/dl (12.0-16.0)
[2025-09-02] MEDS: Lactated Ringers 1,000 ML 100 ML IVCONT ×2 (09:06→14:28)
--- NOTE | 2025-09-02 10:24 | MHC.SHP ---
Pre-Procedural Eval Section A - 24 Hr Update-Section A only Date of Service: 09/02/25 The patient is an INPATIENT: No Changes since office visit: No Cold of Flu in the past 2 weeks, No New Medical Problems, No Changes in Medication and No Patient answered all questions The patient has been examined within 24 hours of the surgical procedure. The History & Physical has been completed within 30 days and I have reviewed it.: Yes Section B - Complete if H&P > 30 days Chief Complaint: Unilateral primary osteoarthritis, right hip Allergies: Allergies Allergy/AdvReac Type Severity Reaction Status Date / Time ephedrine (From Tedral) Allergy Vomiting Verified 09/02/25 08:56 fish derived (fish) Allergy Hives Verified 09/02/25 08:56 phenobarbital (From Tedral) Allergy Vomiting Verified 09/02/25 08:56 theophylline (From Tedral) Allergy Vomiting Verified 09/02/25 08:56 Plan I have reviewed the history and physical and performed a pertinent physical examination on my patient. No changes have occurred unless specified. Time Spent With Patient Time: Total time managing care of this patient today ____ minutes.
--- NOTE | 2025-09-02 12:40 | PM.OP ---
Brief Operative Note Date of Service: 09/02/25 Pre-op diagnosis: Right hip OA Post-op diagnosis: same Procedure: Right FLORENTINO Implants: Jose Ramon Trident 52/ 2 acetabular screws and lip liner [place] Trident2 #4 132 +0/36 ceramic Surgeon: Khoi Yu MD Anesthesia: GETA and local Was an Client Technologies Specialist used for this Procedure?: Yes Client Technologies Specialist: Geremias Shaver Estimated blood loss (mL): 200 IV fluids (mL): 1,000 Pathology: other Condition: stable Disposition: PACU
--- NOTE | 2025-09-02 16:32 | PHA.MEDREC ---
Addendum entered by Jermaine Livingston bev 09/02/25 16:41: MED REC REVIEWED BY [facility] Original Note: Pharmacy Consult ? Medication Reconciliation reviewed med rec done by nursing. Spoke with pt and she verified the med list. Pt still taking Furosemide and Spironolactone despite no recent claims for any of those; called pt pharmacy ([facility]) and they confirmed pt has not gotten Spironolactone since 12/2023 and they have no claims for Furosemide being filled at their facility (in over 2 years).
--- NOTE | 2025-09-02 20:43 | PM.DS ---
DS: Providers Provider Date of Service: 09/02/25 Date of discharge: 09/04/25 Primary care physician: ARNAUD RICKETTS Consults: 09/02/25 14:01 Consult to Case Management Routine Comment: Rt ángela Consult to Hospitalist Routine Comment: Consulting Provider: [facility] [place] [facility] Reason For Exam: Med management DS: Diagnosis Discharge Diagnosis (1) S/P total right hip arthroplasty: Status: Acute DS: Summary Hospital Course Hospital Course: The patient underwent a successful right total hip arthroplasty on 09/02/[address] Yu, was transferred to PACU and then to the floor to recover. During their stay, their vitals were stable, afebrile at 97.2. Labs were unremarkable, H/H 8.9/27.1. POD 1 he was started on Lovenox 40 mg subQ once a day for DVT ppx, they also received Physical Therapy services twice a day. Physical therapy should include gait training, core and lumbar strength, glute strength. Posterior precautions intact. WBAT. Prior to discharge, her dressing was changed, incision clean dry and intact, new Aquacel dressing applied. The Aquacel dressing should remain intact and dry at all times. Any concerns with the dressing, please contact orthopedic office. No showering. The plan is to be discharged home with vna Time Attestation Discharge Coordination Time (in mins): 30 Quality: Safe Use of Opioids Does Pt have an Active Cancer Diagnosis on the Problem List?: No Quality: Stroke Does the patient have a stroke diagnosis?: No Physical Exam Vital Signs: Vital Signs: Last Vital Signs Temp 97.1 F 09/02/25 20:00 Pulse 66 09/02/25 20:00 Resp 18 09/02/25 20:00 BP 125/55 L 09/02/25 20:00 Pulse Ox 93 09/02/25 20:00 O2 Del Method Room Air 09/02/25 20:00 O2 Flow Rate 2 09/02/25 13:24 BMI result Body Mass Index 40.9 DS: Data Data Completed and Pending Pending studies at discharge: Pending at discharge 09/02/25 12:29 Surgical [PTH] Routine Labs on day of discharge: Laboratory Results - last 24 hr 09/02/25 08:57 Hgb 14.2 Hct 42.5 Discharge Plan Discharge Patient Disposition: Home Health Service Referrals: [facility] [Other] - 1 Week Meuse,Ta-Kristan, PA-C [Physician Drilling Contractor, Orthopedics] - 2 Weeks Referral Note: 09/18/25 14:00 [facility] [place] [facility] Geremias Shaver PA-C Discharge Medications: New celecoxib 200 mg Capsule 200 mg PO BID 30 Days Qty: 60 0RF acetaminophen 325 mg Tablet 650 mg PO Q6H PRN (Reason: Pain, Mild 1-3,Fever,Headache) 30 Days Qty: 240 0RF oxycodone 5 mg Tablet 5 mg PO Q4H PRN (Reason: Pain, Moderate(Pain Scale 4-6)) 7 Days Qty: 42 0RF Rx Instructions: Partial Fill upon patient request. enoxaparin 40 mg/0.4 mL Syringe 40 mg subcut Q24H 42 Days Qty: 16.8 0RF Continued (DME) Folding Front Wheeled walker See Rx Instructions .ROUTE .MEDSUPPLY Qty: 1 0RF Rx Instructions: Duration: 99 days (DME) Raised toilet seat See Rx Instructions .ROUTE .MEDSUPPLY Qty: 1 0RF Rx Instructions: duration - 99 days (DME) SHOWER CHAIR See Rx Instructions .ROUTE .MEDSUPPLY Qty: 1 0RF Rx Instructions: DURATION: LIFETIME cyanocobalamin (vitamin B-12) 100 mcg Tablet 100 mcg PO DAILY furosemide 20 mg Tablet 20 mg PO DAILY fluticasone propionate 50 mcg/actuation [place],Suspension 1 spray INTRANASAL DAILY Rx Instructions: administer into each nostril cholecalciferol (vitamin D3) 25 mcg (1,000 unit) Tablet 25 mcg PO DAILY albuterol sulfate 1.25 mg/3 mL Solution For Nebulization 1.25 mg INHALATION Q4-6H PRN (Reason: Wheezing) polyethylene glycol 3350 [Miralax] 17 gram Powder In Packet 17 g PO DAILY PRN (Reason: Constipation) biotin 1 mg Tablet 1 mg PO DAILY montelukast 10 mg tablet 10 mg PO DAILY letrozole 2.5 mg tablet 2.5 mg PO DAILY Trelegy Ellipta 200-62.5-25 mcg blister with device 1 ea inhalation DAILY albuterol sulfate 90 mcg/actuation HFA aerosol inhaler 2 puff inhalation Q4-6H PRN (Reason: Shortness Of Breath Or Wheezing) atorvastatin 40 mg tablet 40 mg PO BEDTIME omeprazole 20 mg capsule,delayed release(DR/EC) 20 mg PO DAILY allopurinol 100 mg tablet 100 mg PO DAILY citalopram 40 mg tablet 40 mg PO DAILY bupropion HCl (smoking deter) 150 mg tablet extended release 12 hr 150 mg PO BID gabapentin 300 mg capsule 300 mg PO BEDTIME spironolactone 100 mg tablet 100 mg PO BID Discontinued naproxen 250 mg tablet 250 mg PO BID PRN (Reason: Pain) tramadol 50 mg tablet 100 mg PO BID PRN (Reason: Pain) Discharge Orders: Discharge Order (Routine); Ordered 09/04/25 Ordered By: Geremias Shaver Diet: Regular diet Activity on Discharge: Use cane or walker Activity Restrictions/Additional Instructions: Physical Therapy : Hip replacement- WBAT with walker, posterior precautions, gait training Use walker for ambulation Limit stair climbing No shower or tub bath No driving for 6 weeks Continue anticoagulant Keep Aquacel dressing clean, dry and intact. Follow up with orthopedics in 2 weeks -Bandage/Incision Site Care: -Ice 20mins at a time -Make sure you use a towel or cloth on your skin as a barrier -DO NOT remove the bandage -Keep Bandage clean, dry and intact -Do not get the bandage wet: -No tub bath, pools or hot tubs -If there are any concerns regarding the bandage please call orthopedics: [phone] -Hip Precautions: -Refrain from laying on side -No crossing the legs -Avoid low chairs and deep couches -Use supportive shoes with nonslip soles -Physical Therapy: -Patient is WBAT with the use of a walker -Strengthening: Quadriceps and hip muscles -Walking: Gait training and gradually increasing distance with walker -Ankle pumps and incentive spirometry to limit the risk of blood clot -Diet: -Resume regular diet as tolerated. -Drink plenty of fluids and eat a high-fiber foods to avoid constipation -This is a common side effect of pain medication) -Take stool softeners as prescribed -Blood Clot Prevention: -Take the prescribed blood thinner, Lovenox as directed for 6 weeks -Perform ankle pumps and walk frequently with the walker and assistance if needed -Report calf pain, swelling, or shortness of breath immediately Print Language: Uzbek
[2025-09-03] VITALS (9 sets, daily range): BP systolic 109–138; BP diastolic 53–64; PULSE 66–121; RESP 14–20; TEMP 36.1–36.7; O2SAT 90–97
[2025-09-03] MEDS: Lactated Ringers 1,000 ML 100 ML IVCONT ×2 (00:35→22:11)
--- NOTE | 2025-09-03 02:27 | HO.PM.IMCN ---
History of Present Illness Data of Consult Service Date: 09/03/25 Requesting physician: Khoi Yu Primary Care Provider: ARNAUD RICKETTS Reason for consult: medical management Patient is a 65-year-old female with a past medical history significant for HLD, morbid obesity, moderate persistent asthma, ovarian cancer s/p hysterectomy 10/2023 on letrozole, HTN, GERD/hiatal hernia, gout, Lyme, depression, SAMIR, RA and RLS, now s/p right FLORENTINO, hospitalist consult placed for medical management. Medical history and medications were reviewed with the patient. She has no acute medical concerns including chest pain, shortness of breath, nausea, vomiting, abdominal pain or urinary symptoms. Review of Systems Constitutional: Constitutional: Denies body ache(s), Denies chills, Denies fatigue, Denies fever(s) and Denies headache(s) Eyes: Eyes: Denies change in vision ENT: Denies headache(s), Denies nasal congestion and Denies sore throat Cardiovascular: Cardiovascular: Denies chest pain, Denies rapid heart rate, Denies leg edema, Denies lightheadedness and Denies dyspnea Respiratory: Respiratory: Denies chest congestion, Denies cough, Denies dyspnea and Denies wheezing Gastrointestinal: Gastrointestinal: Denies abdominal pain, Denies nausea and Denies vomiting Genitourinary: Genitourinary: Denies dysuria and Denies urinary urgency Musculoskeletal: Musculoskeletal: Denies myalgias Integumentary/Breasts: Skin/Breast: Denies rash Neurologic: Denies confusion and Denies headache(s) Psychiatric: Psychiatric: Denies confusion Endocrine: Endocrine: Denies fatigue Hematologic/Lymphatic: Hematologic/Lymphatic: Denies easy bleeding Allergic/Immunologic: Allergic/Immunologic: Denies wheezing [facility] Medical History Arthritis Numbness Vitamin D deficiency Asthma Right sided weakness Restless leg syndrome Depression Ovarian cancer, bilateral Sleep apnea Multiple pulmonary nodules History of chemotherapy Lytic bone lesion of femur Insomnia Lyme disease Gout Hiatal hernia Hypercalcemia GERD (gastroesophageal reflux disease) HTN (hypertension) Obesity Carpal tunnel syndrome Bilateral tinnitus Aromatase inhibitor use Abdominal wall seroma Surgical History History of wisdom tooth extraction History of esophagogastroduodenoscopy (EGD) H/O colonoscopy Hx of cardiac catheterization (~04/28/22) Hx of appendectomy History of hysterectomy (~10/2023) Social History Household Members: Spouse Housing: House Are you a primary caregivers non medical to a significant other at home: No Do you presently have visiting nurse or other home services: No Alcohol intake: never Comment: COUNTS CORRECT Patient Tobacco Use Status: Never used Tobacco Use of substances other than those prescribed or required for medical reasons: No Currently Displaying Signs/Symptoms of Drug Intoxication Withdrawal: No Have you been hit, kicked, punched, or otherwise hurt by someone within the past year? If so, by whom?: No Do you feel safe in your current relationship?: Yes Is there a partner from a previous relationship who is making you feel unsafe now?: No Are you made to feel afraid or neglected: No Advance Directives: No Advance Directives Information Provided: Yes Advance Directives on File: No Do you have a plan to hurt others: No Plan Recently lost weight without trying: No How much weight loss: Not applicable Eating poorly because of decreased appetite: No Nutrition screen score: 0 Nutrition Risks: No Nutritional Risk Patient : No : No Poor oral hygiene: No Current occupational status: retired Current occupation: right hand dominant Meds Allergies Allergy/AdvReac Type Severity Reaction Status Date / Time ephedrine (From Tedral) Allergy Vomiting Verified 09/02/25 08:56 fish derived (fish) Allergy Hives Verified 09/02/25 08:56 phenobarbital (From Tedral) Allergy Vomiting Verified 09/02/25 08:56 theophylline (From Tedral) Allergy Vomiting Verified 09/02/25 08:56 Active Medications: Current Medications Acetaminophen (Acetaminophen 325 Mg Tablet) 650 mg PO Q6H PRN PRN Reason: Pain, Mild 1-3,fever,headache Albuterol Sulfate (Albuterol Sulfate (0.042%) 1.25 Mg/3 Ml Vial.Neb) 1.25 mg INHALE Q6H PRN PRN Reason: Wheezing Albuterol Sulfate (Albuterol Sulfate 90 Mcg 8 Gm Inhaler) 2 puff INHALE Q6H PRN PRN Reason: Shortness Of Breath Or Wheezing Allopurinol (Allopurinol 100 Mg Tablet) 100 mg PO DAILY [facility] Bupropion HCl (Bupropion Hcl Xl 300 Mg Tab.Er.24h) 300 mg PO DAILY [facility] Celecoxib (Celecoxib 200 Mg Capsule) 200 mg PO BID [facility] Last Admin: 09/02/25 20:35 Dose: 200 mg Cyanocobalamin (Cyanocobalamin (Vitamin B-12) 100 Mcg Tablet) 100 mcg PO DAILY [facility] Docusate Sodium (Docusate Sodium 100 Mg Capsule) 100 mg PO BID [facility] Last Admin: 09/02/25 20:35 Dose: 100 mg Enoxaparin Sodium (Enoxaparin Sodium 40 Mg/0.4 Ml Syringe) 40 mg SUBCUT Q24H [facility] Escitalopram Oxalate (Escitalopram Oxalate 20 Mg Tablet) 20 mg PO DAILY [facility] Fluticasone Propionate (Fluticasone Propionate Nasal 16 Gm [place]) 1 spray NOSTRIL-B DAILY [facility] Fluticasone/Umeclidinium/Vilanterol (Fluticasone/Umeclidinium/Vilanterol 200/62.5/25 Blst.W.Dev) 1 puff INHALE RDAILY [facility] Furosemide (Furosemide 20 Mg Tablet) 20 mg PO DAILY [facility]; Protocol Gabapentin (Gabapentin 300 Mg Capsule) 300 mg PO BEDTIME [facility] Last Admin: 09/02/25 20:35 Dose: 300 mg Hydromorphone HCl (Hydromorphone Hcl 1 Mg/Ml Syringe) 1 mg IVPUSH Q4H PRN; Protocol PRN Reason: Pain, Severe (Pain Scale 7-10) Lactated Ringer's (Lr) 1,000 mls @ 100 mls/hr IVCONT .Q10H [facility] Last Admin: 09/03/25 00:35 Dose: 100 mls/hr Letrozole (Letrozole 2.5 Mg Tablet) 2.5 mg PO DAILY [facility] Montelukast Sodium (Montelukast Sodium 10 Mg Tablet) 10 mg PO DAILY [facility] Omeprazole (Omeprazole 20 Mg Capsule.Dr) 20 mg PO DAILY@0630 [facility] Ondansetron HCl (Ondansetron Hcl 4 Mg/2 Ml Vial) 4 mg IVPUSH Q8H PRN PRN Reason: Nausea and Vomiting Oxycodone HCl (Oxycodone Hcl Immed Release 5 Mg Tablet) 5 mg PO Q4H PRN PRN Reason: Pain, Moderate(Pain Scale 4-6) Oxycodone HCl (Oxycodone Hcl Er 10 Mg Tab.Er.12h) 10 mg PO BID [facility] Last Admin: 09/02/25 20:35 Dose: 10 mg Polyethylene Glycol (Polyethylene Glycol 3350 17 Gm Powd.Pack) 17 gm PO DAILY PRN PRN Reason: Constipation Sodium Chloride (0.9 % Sodium Chloride Flush 3 Ml Syringe) 3 ml IVFLUSH QSHIFT [facility] Last Admin: 09/02/25 20:35 Dose: Not Given Spironolactone (Spironolactone 25 Mg Tablet) 100 mg PO BID [facility]; Protocol Last Admin: 09/02/25 20:35 Dose: 100 mg Home Medications ?Medication ?Instructions ?Recorded ?Confirmed ?Last Taken ?Type albuterol sulfate 90 mcg/actuation 2 puff inhalation Q4-6H PRN 03/06/25 08/05/25 09/01/25 History aerosol inhaler Shortness Of Breath Or Wheezing allopurinol 100 mg tablet 100 mg PO DAILY 03/06/25 08/05/25 09/01/25 History atorvastatin 40 mg tablet 40 mg PO BEDTIME 03/06/25 08/05/25 09/01/25 History bupropion HCl (smoking deter) 150 150 mg PO BID 03/06/25 09/02/25 09/02/25 History mg tablet,12 hr sustained-release(smoking deterrent) citalopram 40 mg tablet 40 mg PO DAILY 03/06/25 09/02/25 09/02/25 History fluticasone fur. 200 mcg-umeclid 1 ea inhalation DAILY 03/06/25 08/05/25 09/01/25 History 62.5 mcg-vilant 25 mcg inhalat.powder (Trelegy Ellipta) gabapentin 300 mg capsule 300 mg PO BEDTIME 03/06/25 08/05/25 09/01/25 History letrozole 2.5 mg tablet 2.5 mg PO DAILY 03/06/25 09/02/25 09/02/25 History montelukast 10 mg tablet 10 mg PO DAILY 03/06/25 08/05/25 09/01/25 History naproxen 250 mg tablet 250 mg PO BID PRN Pain 03/06/25 08/05/25 09/01/25 History omeprazole 20 mg capsule,delayed 20 mg PO DAILY 03/06/25 08/05/25 09/01/25 History release spironolactone 100 mg tablet 100 mg PO BID 03/06/25 08/04/25 09/01/25 History tramadol 50 mg tablet 100 mg PO BID PRN Pain 03/06/25 09/02/25 09/02/25 History cholecalciferol (vitamin D3) 25 25 mcg PO DAILY 08/04/25 08/05/25 09/01/25 History mcg (1,000 unit) tablet cyanocobalamin (vitamin B-12) 100 100 mcg PO DAILY 08/04/25 08/05/25 09/01/25 History mcg tablet fluticasone propionate 50 1 spray intranasal DAILY 08/04/25 08/05/25 09/01/25 History mcg/actuation nasal spray,suspension furosemide 20 mg tablet 20 mg PO DAILY 08/04/25 08/05/25 09/01/25 History albuterol sulfate 1.25 mg/3 mL 1.25 mg inhalation Q4-6H PRN 08/05/25 09/02/25 09/01/25 History solution for nebulization Wheezing polyethylene glycol 3350 17 gram 17 g PO DAILY PRN Constipation 08/05/25 08/05/25 09/02/25 History oral powder packet (Miralax) biotin 1 mg tablet 1 mg PO DAILY 09/02/25 09/02/25 09/01/25 History Physical Exam Vital Signs and Narrative: Vital Signs: Last Vital Signs Temp 97.1 F 09/02/25 20:00 Pulse 66 09/02/25 20:00 Resp 18 09/02/25 20:00 BP 125/55 L 09/02/25 20:00 Pulse Ox 93 09/02/25 20:00 O2 Del Method Room Air 09/02/25 20:00 O2 Flow Rate 2 09/02/25 13:24 BMI result Body Mass Index 40.9 General: AOx3, no acute distress Resp: CTA bilaterally CVS: S1, S2, RRR GI: +BS, NT, no distention Skin: Warm, dry Neuro: Cranial nerves II-XII grossly intact bilaterally. Motor grossly intact bilaterally Extremities: No edema Psych: Appropriate affect Const: General: No confusion Orientation/consciousness: No confusion Neuro: General: No confusion Results Labs 09/03/25 05:50 09/03/25 05:50 Imaging Radiologist's Impressions: Impressions Pelvis X-Ray 09/02/25 13:23 IMPRESSION: Status post total right hip arthroplasty prosthesis, satisfactory. Electronically signed by: Israel Ayala MD 09/02/2025 02:05 PM EST Assessment and Plan (1) S/P total right hip arthroplasty: Status: Acute Plan Patient is a 65-year-old female with a past medical history significant for HLD, morbid obesity, moderate persistent asthma, ovarian cancer s/p hysterectomy 10/2023 on letrozole, HTN, GERD/hiatal hernia, gout, Lyme, depression, SAMIR, RA and RLS, now s/p right FLORENTINO, hospitalist consult placed for medical management. S/p R FLORENTINO - postop day 1 - plan per ortho HLD - statin Ovarian cancer - letrozole HTN - Lasix and spironolactone Gout - allopurinol Depression - citalopram Moderate persistent asthma, no acute exacerbation - continue home inhalers GERD - PPI Morbid obesity - weight loss encouraged Thank you for allowing me to participate in the pt's care. Signing off. Please contact the medical team if any questions or concerns.
[2025-09-03 06:13] LABS: MANUAL DIFF FLAG NO
[2025-09-03 06:34] LABS: Hematocrit 32.9 % (37.0-47.0); Hemoglobin 10.8 g/dl (12.0-16.0); Imm Gran Abs Auto 0.06 X10*3/uL (0.00-0.03); Imm Gran Pct Auto 0.4 % (0.0-0.4); Lymphocytes Absolute Auto 2.0 X10*3/uL (1.2-4.9); Mean Corpuscular HGB Conc 32.8 g/dl (31.0-35.0); Mean Corpuscular Hemoglobin 31.0 pg (27.0-33.0); Mean Corpuscular Volume 94.5 fL (80.0-98.0); NRBC Abs Auto 0.000 X10*3/uL (0.0-0.012); NRBC Pct Auto 0.0 /100WBC (0.0-0.2); Platelet Count 238 X10*3/uL (160-400); Red Blood Count 3.48 X10*6/uL (4.20-5.50); White Blood Count 13.9 X10*3/uL (4.8-10.8)
[2025-09-03 06:39] LABS: Anion Gap 14 (12-20); Blood Urea Nitrogen 16 mg/dL (9-16); Calcium 9.8 mg/dL (8.4-10.2); Carbon Dioxide 25 mmol/L (22-29); Chloride 106 mmol/L (96-108); Creatinine Clr Calc Pharmacy 95.8; Estimated Glomerular Filt Rate > 60; Potassium 5.3 mmol/L (3.3-5.1); Sodium 140 mmol/L (135-145)
[2025-09-03] MEDS: oxyCODONE HCl ER 10 MG TAB.ER.12H PO ×2 (07:30→20:18)
[2025-09-03] MEDS: oxyCODONE HCl Immed Release 5 MG TABLET PO (07:30)
[2025-09-03] MEDS: buPROPion HCl XL 300 MG TAB.ER.24H PO (07:30)
[2025-09-03] MEDS: Fluticasone/Umeclidinium/Vilanterol 200/62.5/25 BLST.W.DEV 1 PUFF INHALE (08:12)
--- NOTE | 2025-09-03 08:21 | PM.PNORT ---
Subjective Subjective Date of Service: 09/03/25 Interval history: Postop day 1 status post right total hip arthroplasty on 09/02/[address] Yu Patient is resting comfortably in bed No overnight events Denies chest pain shortness of breath or palpitations Physical Exam Vital Signs: Vital Signs: Last Vital Signs Temp 97.4 F 09/03/25 08:00 Pulse 82 09/03/25 08:13 Resp 16 09/03/25 08:13 BP 136/64 09/03/25 08:00 Pulse Ox 92 09/03/25 08:00 O2 Del Method Room Air 09/03/25 08:00 O2 Flow Rate 2 09/02/25 13:24 BMI result Body Mass Index 40.9 Const: General: cooperative, healthy appearing and no acute distress Resp: Effort & Inspection: normal respiratory effort and able to speak in complete sentences Cardio: Rate: regular rate Peripheral pulses: Peripheral pulses 2+ throughout GI: Palpation (GI): Soft to palpation Skin: General skin exam: no rashes or lesions noted Extrem: Other: Rt hip incision clean dry and intact. Roberto intact. No erythema or effusion. Calf supple nontender. Neurovascularly intact. Procedures Date of Service Date of Service: 09/03/25 Progress Note: A&P Assessment and plan (1) S/P total right hip arthroplasty: Status: Acute Assessment and Plan: XR pelvis 1-2V IMPRESSION: Status post total right hip arthroplasty prosthesis, satisfactory. Plan Continue pain management Begin Lovenox for DVT prophylaxis Begin PT/OT: Weightbearing as tolerated, gait training and posterior precautions Discharge pending PT/OT eval recommendations Time Spent With Patient Time: Total time managing care of this patient today ____ minutes. Quality Stroke Does the patient have a stroke diagnosis?: No VTE Prior VTE?: No VTE Risk Level:: Surgical - very high VTE Device Contraindication: N/A - Device Ordered VTE Drug Contraindication: N/A - Med Ordered
--- NOTE | 2025-09-03 08:53 | P.OP_ITS ---
Operative Note Operative Note Date of Service: 09/02/25 Narrative: Date of Service: 09/02/25 Pre-op diagnosis: Right hip OA Post-op diagnosis: same Procedure: Right FLORENTINO Implants: [place] Trident 52/ 2 acetabular screws and lip liner Jose Ramon Trident2 #[id number] +0/36 ceramic Surgeon: Khoi Yu MD Anesthesia: GETA and local Was an Taker Off Braker Machine used for this Procedure?: Yes Taker Off Braker Machine: Geremias Shaver Estimated blood loss (mL): 200 IV fluids (mL): 1,000 Pathology: other Condition: stable Disposition: PACU Procedure in detail: Patient was brought into the operating room and placed in the right lateral decubitus position. All bony prominences were well padded and the limb was prepped and draped in standard sterile fashion. A time-out was called to identify proper site procedure proper surgeon IV antibiotics and 1 g of tranexamic acid were administered. I began by making a curvilinear incision over the posterolateral aspect of the greater trochanter. Dissection was taken down to the tensor fascia which was incised in line with the incision and a Charnley retractor was placed. Werewolf was used to maintain hemostasis. The hip was internally rotated and the external rotators were identified. The vessels were cauterized and a full-thickness capsular/external rotator layer was developed starting just proximal to the piriformis. This layer was tagged and a dull Hohmann retractor was placed underneath the neck in the hip was dislocated. There was acetabular overgrowth laterally that had to be partially taken down to dislocate the hip. A neck cut was made 1 cm proximal to the lesser trochanter and the head and neck were removed and measured 46-48mm on the back table. The head was deformed and eburnated. I then removed the labrum and cauterized the fovea. I started with a 44 reamer and medialized to the inner table. I sequentially reamed up to a size 52 and impacted a 52mm cup at 45 degrees of inclination and 25 degrees of version. 2 acetabular screws were placed into the superior safe zone using standard AO technique. I then placed a 20 deg posterior lipped liner and turned my attention to the femur. I identified the piriformis insertion and used this as a starting point for my samson cutter. The medius tendon was protected with a Hibs retractor. A Charnley awl was inserted in the canal and a curved curette used to remove the lateral bone. I irrigated copiously. I then sequentially broached in the patient's natural version to a size 4 and placed my trial implants. I used a #4/132/+0 based on my pre-operative template. I was satisfied with the stability and tension and length. I removed all instrumentation and copiously irrigated. I placed my final femoral implant and again took the hip through range of motion and was satisfied with the stability and length. The final +0 implant was impacted in place and the hip reduced. I then irrigated copiously and placed 1 g of local tranexamic acid. I performed a capsular closure with 2.0 fiberwire, Emily's fascia with 0 Vicryl, subcuticular with 2-0 Vicryl and the skin with calvin. 14ml Zyrelef was injected at each closure level. Patient was placed into a sterile dressing Patient was extubated brought to the recovery room in stable condition. There were no known complications.
--- NOTE | 2025-09-03 09:27 | HO.POSTANES ---
Post Anesthesia Evaluation Post Anesthesia Evaluation Date of Service: 09/03/25 Vital Signs: Vital Signs Temp Pulse Resp BP Pulse Ox O2 Del Method 09/03/25 08:13 82 16 09/03/25 08:00 97.4 F 67 16 136/64 92 Room Air 09/03/25 07:59 98.0 F 68 18 112/57 L 96 Room Air 09/03/25 03:30 96.9 F 66 14 127/64 94 Room Air Anesthesia: General Mental Status: Awake Pain Control: Satisfactory Nausea/Vomiting: None Hydration: Adequate Anesthesia-Related Issues: No Anes. Related Issues
--- NOTE | 2025-09-03 13:12 | MHC.CM.PN ---
pt lives with will be going ho e with vna when dcd may need a ride
--- NOTE | 2025-09-03 15:01 | MHC.CM.PN ---
pt accepted at [facility]
[2025-09-03] MEDS: 0.9 % Sodium Chloride Flush 3 ML SYRINGE IVFLUSH (17:27)
[2025-09-04 03:59] VITALS: BP 112/57; PULSE 68; RESP 18; TEMP 37.4; O2SAT 94
[2025-09-04 05:26] LABS: MANUAL DIFF FLAG NO
[2025-09-04 05:30] LABS: Hematocrit 27.1 % (37.0-47.0); Hemoglobin 8.9 g/dl (12.0-16.0); Imm Gran Abs Auto 0.04 X10*3/uL (0.00-0.03); Imm Gran Pct Auto 0.4 % (0.0-0.4); Lymphocytes Absolute Auto 2.6 X10*3/uL (1.2-4.9); Mean Corpuscular HGB Conc 32.8 g/dl (31.0-35.0); Mean Corpuscular Hemoglobin 30.6 pg (27.0-33.0); Mean Corpuscular Volume 93.1 fL (80.0-98.0); NRBC Abs Auto 0.000 X10*3/uL (0.0-0.012); NRBC Pct Auto 0.0 /100WBC (0.0-0.2); Platelet Count 178 X10*3/uL (160-400); Red Blood Count 2.91 X10*6/uL (4.20-5.50); White Blood Count 9.2 X10*3/uL (4.8-10.8)
[2025-09-04 05:45] LABS: Anion Gap 10 (12-20); Blood Urea Nitrogen 17 mg/dL (9-16); Calcium 9.0 mg/dL (8.4-10.2); Carbon Dioxide 27 mmol/L (22-29); Chloride 107 mmol/L (96-108); Creatinine Clr Calc Pharmacy 106.7; Estimated Glomerular Filt Rate > 60; Potassium 4.1 mmol/L (3.3-5.1); Sodium 140 mmol/L (135-145)
[2025-09-04 08:02] VITALS: BP 114/53; PULSE 66; RESP 18; TEMP 36.2; O2SAT 96
[2025-09-04] MEDS: oxyCODONE HCl Immed Release 5 MG TABLET PO (08:05)
[2025-09-04] MEDS: oxyCODONE HCl ER 10 MG TAB.ER.12H PO (08:06)
[2025-09-04] MEDS: buPROPion HCl XL 300 MG TAB.ER.24H PO (08:06)
[2025-09-04] MEDS: Fluticasone/Umeclidinium/Vilanterol 200/62.5/25 BLST.W.DEV 1 PUFF INHALE (08:07)
[2025-09-04 08:09] VITALS: PULSE 68; RESP 15; O2SAT 97
[2025-09-04] MEDS: Lactated Ringers 1,000 ML 100 ML IVCONT (08:11)
--- NOTE | 2025-09-04 09:12 | MHC.CM.PN ---
Addendum entered by Vashti Oneill 09/04/25 14:52: RN COMPLETED LOVENOX TEACH WITH PT L[facility] TRANSPORT ARRANGED Original Note: PT TO DC HOME TODAY WITH MELVIN STEPHENSON
--- NOTE | 2025-09-04 09:21 | W.MHC.F2F ---
Service Date Service Date: 09/04/25 Encounter Date of encounter: 09/04/25 Reasons for Services Signs and symptoms assessed: Status post right total hip arthroplasty Reason for group home: postoperative assessment and/or care Reason for physical therapy: home safety and mobility, restore joint function, gait/transfer training and ADL training Homebound: Leaving the home is medically contraindicated at this time without the asist of a device and/or another person due th the listed conditions above and below. Reason homebound: unsteady gait / fall risk, pain with ambulation, poor balance / fall risk, immunosuppression / infection risk and unable to drive Certification: Based on the above findings, I certify that this patient is confined to the home and needs intermittent group home care, physical therapy and/or speech therapy, or continues to need occupational therapy. The patient is under my care, and I have initiated the establishment of the plan of care. The patient will be followed by a physician who will periodically review the plan of care. Time Spent With Patient Time: Total time managing care of this patient today ____ minutes.
== END 2025-09-04 11:56 | disposition home health service (06) ==
LOC: HO.SSS 08:01 → HO.S3 13:23
PROVIDERS: Physician Assistant; PCP Physician Assistant Medical; Visit Provider Orthopaedic Surgery
PROC: (CPT 27130; principal; 2025-09-02 10:00)
DX: M16.11 Unilateral primary osteoarthritis, right hip (principal); M25.551 Pain in right hip; M25.651 Stiffness of right hip, not elsewhere classified; R26.2 Difficulty in walking, not elsewhere classified; M06.9 Rheumatoid arthritis, unspecified; Z85.43 Personal history of malignant neoplasm of ovary; I10 Essential (primary) hypertension; K21.9 Gastro-esophageal reflux disease without esophagitis; K44.9 Diaphragmatic hernia without obstruction or gangrene; M10.9 Gout, unspecified; A69.20 Lyme disease, unspecified; E78.5 Hyperlipidemia, unspecified; J45.909 Unspecified asthma, uncomplicated; F32.A Depression, unspecified; E55.9 Vitamin D deficiency, unspecified; E66.9 Obesity, unspecified; G47.33 Obstructive sleep apnea (adult) (pediatric); Z90.710 Acquired absence of both cervix and uterus; Z79.811 Long term (current) use of aromatase inhibitors; Z79.51 Long term (current) use of inhaled steroids; Z79.1 Long term (current) use of non-steroidal anti-inflammatories (NSAID); Z79.899 Other long term (current) drug therapy; Z88.8 Allergy status to other drugs, medicaments and biological substances; Z98.890 Other specified postprocedural states
CPT/HCPCS: 27130; 36415; 72170; 80048; 85014; 85018; 85025; 85027; 86850; 86900; 86901; 87640; 87641; 88305; 88311; 94640; 97116; 97161; 97166; 97535; A6260; C1713; C1776; J0131; J0668; J0690; J1100; J1171; J1650; J1920; J2003; J2151; J2405; J2704; J2795; J3010; J7120

== ENCOUNTER → 2025-09-02 08:00 | Outpatient (BNV) | payer MEDICARE, SELFPAY | PROVIDERS: PCP Physician Assistant Medical; Visit Provider Physician Assistant | DX: Z96.641 Presence of right artificial hip joint (principal) | CPT/HCPCS: 99222 ==

== ENCOUNTER → 2025-09-02 08:00 | Outpatient (BNV) | payer MEDICARE, SELFPAY | PROVIDERS: PCP Physician Assistant Medical; Visit Provider Orthopaedic Surgery | DX: Z96.641 Presence of right artificial hip joint (principal) | CPT/HCPCS: 27130; 99024; G0180 ==

== ENCOUNTER → 2025-09-02 13:59 | Outpatient (BNV) | payer MEDICARE, SELFPAY | PROVIDERS: PCP Physician Assistant Medical; Visit Provider Radiology Diagnostic Radiology | DX: Z96.641 Presence of right artificial hip joint (principal) | CPT/HCPCS: 72170 ==

== ENCOUNTER 2025-09-11 10:08 | Outpatient (AMB) | payer MEDICARE, OTHER, SELFPAY ==
--- NOTE | 2025-09-11 10:17 | A.OFFVIS_ITS ---
Intake Visit Reasons: PO-Bandage Check RT FLORENTINO 09/02/25 NE Intake Note: Fany is a 65 year old female who presents today for a Bandage Check status post right FLORENTINO, performed by Dr. Yu on 09/02/24. Allergies ephedrine (From Tedral) Allergy (Verified 09/02/25 08:56) Vomiting fish derived (fish) Allergy (Verified 09/02/25 08:56) Hives phenobarbital (From Tedral) Allergy (Verified 09/02/25 08:56) Vomiting theophylline (From Tedral) Allergy (Verified 09/02/25 08:56) Vomiting Medication List - Last Reconciled 09/11/25 by Geremias Shaver PA-C acetaminophen 650 mg (2 x 325 mg) PO Q6H PRN 30 days albuterol sulfate 1.25 mg inhalation Q4-6H PRN albuterol sulfate 90 mcg/actuation 2 puffs inhalation Q4-6H PRN allopurinol 100 mg PO DAILY atorvastatin 40 mg PO BEDTIME biotin 1 mg PO DAILY bupropion HCl (smoking deter) 150 mg PO BID celecoxib 200 mg PO BID 30 days cholecalciferol (vitamin D3) 25 mcg PO DAILY citalopram 40 mg PO DAILY cyanocobalamin (vitamin B-12) 100 mcg PO DAILY enoxaparin 40 mg (0.4 mL) subcut Q24H 42 days fluticasone propionate 50 mcg/actuation 1 spray intranasal DAILY evlqzoleegp-qikkmjzzx-zzqkymbd 200-62.5-25 mcg (Trelegy Ellipta) 1 ea inhalation DAILY [Folding Front Wheeled walker Duration: 99 days] furosemide 20 mg PO DAILY gabapentin 300 mg PO BEDTIME letrozole 2.5 mg PO DAILY montelukast 10 mg PO DAILY omeprazole 20 mg PO DAILY oxycodone 5 mg PO Q4H PRN 7 days polyethylene glycol 3350 (Miralax) 17 grams PO DAILY PRN [Raised toilet seat duration - 99 days] [SHOWER CHAIR DURATION: LIFETIME] spironolactone 100 mg PO BID HPI HPI PO-Bandage Check RT FLORENTINO 09/02/25 NE: Details: 65-year-old female returns to the office today status post right total hip a rthroplasty 09/02/2025. She comes in today for a trang device check. [facility] Medical History Arthritis Numbness Vitamin D deficiency Asthma Right sided weakness Restless leg syndrome Depression Ovarian cancer, bilateral Sleep apnea Multiple pulmonary nodules History of chemotherapy Lytic bone lesion of femur Insomnia Lyme disease Gout Hiatal hernia Hypercalcemia GERD (gastroesophageal reflux disease) HTN (hypertension) Obesity Carpal tunnel syndrome Bilateral tinnitus Aromatase inhibitor use Abdominal wall seroma Surgical History History of wisdom tooth extraction History of esophagogastroduodenoscopy (EGD) H/O colonoscopy Hx of cardiac catheterization (~04/28/22) Hx of appendectomy History of hysterectomy (~10/2023) Social History Household Members: Spouse Housing: House Are you a primary care attendant to a significant other at home: No Do you presently have visiting nurse or other home services: No Alcohol intake: never Comment: COUNTS CORRECT Patient Tobacco Use Status: Never used Tobacco service: No Current occupational status: retired Current occupation: right hand dominant Review of Systems Const All systems reviewed & are unremarkable except as noted in HPI and below Physical Exam Extrem Other: Right hip trang dressing is clean dry and intact. Surrounding skin is without erythema or ecchymosis. Assessment & Plan Assessment & Plan (1) S/P total right hip arthroplasty: Code(s): Z96.641 - Presence of right artificial hip joint Category: Surgical Plan: Trang device will remain intact. I will see her back next week for her routine postop appointment. Coding Level of Care Code Global (41494) Diagnoses S/P total right hip arthroplasty Z96.641
== END 2025-09-11 10:22 | disposition home or self-care (01) ==
LOC: HO.HOS 10:09
PROVIDERS: PCP Physician Assistant Medical; Visit Provider Physician Assistant
DX: Z96.641 Presence of right artificial hip joint (principal)
CPT/HCPCS: 99024

== ENCOUNTER → 2025-09-11 10:08 | Outpatient (BNVA) | payer MEDICARE, OTHER, SELFPAY | PROVIDERS: PCP Physician Assistant Medical; Visit Provider Physician Assistant | DX: Z47.89 Encounter for other orthopedic aftercare (principal); Z96.641 Presence of right artificial hip joint | CPT/HCPCS: 99212 ==

== ENCOUNTER 2025-09-18 13:51 | Outpatient (AMB) | payer MEDICARE, SELFPAY ==
--- NOTE | 2025-09-18 13:59 | MHC.OFFVIS ---
Intake Visit Reasons: 2WKPO: R FLORENTINO w/NE 09/02/25 Intake Note: Melisa is a 65 year old female who presents today post operatively after undergoing a right FLORENTINO, performed by Dr. Yu on 09/02/25. Patient reports no pain, just having soreness. States that she has not been using her pain medication due to only having sorness. She is waiting for a call to set up outpatient therapy. Allergies ephedrine (From Tedral) Allergy (Verified 09/02/25 08:56) Vomiting fish derived (fish) Allergy (Verified 09/02/25 08:56) Hives phenobarbital (From Tedral) Allergy (Verified 09/02/25 08:56) Vomiting theophylline (From Tedral) Allergy (Verified 09/02/25 08:56) Vomiting Medication List - Last Reconciled 09/18/25 by Geremias Shaver PA-C acetaminophen 650 mg (2 x 325 mg) PO Q6H PRN 30 days albuterol sulfate 1.25 mg inhalation Q4-6H PRN albuterol sulfate 90 mcg/actuation 2 puffs inhalation Q4-6H PRN allopurinol 100 mg PO DAILY atorvastatin 40 mg PO BEDTIME biotin 1 mg PO DAILY bupropion HCl (smoking deter) 150 mg PO BID celecoxib 200 mg PO BID 30 days cholecalciferol (vitamin D3) 25 mcg PO DAILY citalopram 40 mg PO DAILY cyanocobalamin (vitamin B-12) 100 mcg PO DAILY enoxaparin 40 mg (0.4 mL) subcut Q24H 42 days fluticasone propionate 50 mcg/actuation 1 spray intranasal DAILY wqqcocfsoaj-vfaqobqfl-yjhzentj 200-62.5-25 mcg (Trelegy Ellipta) 1 ea inhalation DAILY [Folding Front Wheeled walker Duration: 99 days] furosemide 20 mg PO DAILY gabapentin 300 mg PO BEDTIME letrozole 2.5 mg PO DAILY montelukast 10 mg PO DAILY omeprazole 20 mg PO DAILY oxycodone 5 mg PO Q4H PRN 7 days polyethylene glycol 3350 (Miralax) 17 grams PO DAILY PRN [Raised toilet seat duration - 99 days] [SHOWER CHAIR DURATION: LIFETIME] spironolactone 100 mg PO BID HPI Comments Details: History of Present Illness The patient is a 65 year old female presenting for a 2-week postoperative follow-up visit after a right hip replacement on September 02. Her postoperative course has been good, with her primary complaints being soreness and stiffness. She has required minimal pain medication. The patient has been receiving in-home physical therapy and is pending a start date for outpatient physical therapy. She is using a cane for ambulation. Social History - Functional Status: The patient is using a cane for ambulation. [facility] Medical History Arthritis Numbness Vitamin D deficiency Asthma Right sided weakness Restless leg syndrome Depression Ovarian cancer, bilateral Sleep apnea Multiple pulmonary nodules History of chemotherapy Lytic bone lesion of femur Insomnia Lyme disease Gout Hiatal hernia Hypercalcemia GERD (gastroesophageal reflux disease) HTN (hypertension) Obesity Carpal tunnel syndrome Bilateral tinnitus Aromatase inhibitor use Abdominal wall seroma Surgical History History of wisdom tooth extraction History of esophagogastroduodenoscopy (EGD) H/O colonoscopy Hx of cardiac catheterization (~04/28/22) Hx of appendectomy History of hysterectomy (~10/2023) Social History Household Members: Spouse Housing: House Are you a primary healthcare economics consultant to a significant other at home: No Do you presently have visiting nurse or other home services: No Alcohol intake: never Comment: COUNTS CORRECT Patient Tobacco Use Status: Never used Tobacco service: No Current occupational status: retired Current occupation: right hand dominant Review of Systems Narrative Review of Systems - Musculoskeletal: Reports soreness and stiffness in the right hip. - General: Denies significant pain requiring regular opioid use. Physical Exam Exam Exam: Physical Exam - Skin: The right hip surgical incision was inspected, with calvin in place prior to removal. - The surrounding skin was noted to be in good condition. Assessment & Plan Assessment & Plan (1) S/P total right hip arthroplasty: Code(s): Z96.641 - Presence of right artificial hip joint Category: Surgical Plan Plan 1. Postoperative Follow-Up After Right Total Hip Arthroplasty The patient is 2 weeks status post right total hip arthroplasty and is recovering well. Her pain is well-controlled, with symptoms limited to soreness and stiffness, and she has minimal need for narcotic pain medication. The surgical incision calvin were removed today, and the patient may shower after their removal. She has been receiving home physical therapy and will transition to an outpatient setting. A follow-up appointment is scheduled for October 16. Discussion Notes I reviewed the patient's progress at two weeks post-operation from her right hip replacement. We discussed that she is recovering well, with minimal pain medication use and symptoms limited to soreness and stiffness. I informed her that the surgical incision appears to be healing appropriately and that her calvin would be removed today, after which she can resume showering. We confirmed her plan to transition to outpatient physical therapy and the scheduled follow-up appointment for October 16. Consent Patient was informed and verbally consented to the use of an ambient scribe for clinic note documentation during this visit. Coding Level of Care Code Global (99133) Diagnoses S/P total right hip arthroplasty Z96.641
--- OUTSIDE RECORDS SUMMARY | 2025-09-18 18:06 | XMS_ITS | Clinical Summary ---
Author Organization [facility] Address [address] [place] [address] Care Team Providers Care Russian Language Professor Name Role Phone Parisa Padilla MD Primary Care Provider + Parisa Padilla MD Unavailable [phone] Parisa Padilla MD Unavailable [phone] Social History Tobacco Use Types Packs/Day Years [...] of Treatment Not on file Care Teams Russian Language Professor Relationship Specialty Start Date End Date Parisa Padilla MD [address] [place] [address] [facility] - General 11/05/21 Parisa Padilla MD [address] [place] [address] 11/05/21 Parisa Padilla MD [address] [place] [address] 11/05/21
--- OUTSIDE RECORDS SUMMARY | 2025-09-18 18:06 | XMS_ITS | Patient Health Record ---
Author Organization [facility] Address [address] [place] [id number] Care Team Providers Care Welt Drawer Name Role Phone May Driscoll MD, Parisa Primary Care Provider U sanjuana Aguillon MD, [facility] Allergies Allergen (clinical drug ingredient) Drug/Non Drug [...] W/U Status Risk Notes Problem Seasonal allergy (997944639) Environmental and seasonal allergies (J30.89) Active confirmed Problem Obstructive sleep apnea (05970476) Obstructive sleep apnea (G47.33) Active confirmed Problem Uncomplicated severe persistent asthma (438489522) Uncomplicated severe persistent asthma (J45.50) Active confirmed Problem Exacerbation of moderate persistent asthma (disorder) (493645130) Moderate persistent asthma with exacerbation (J45.41) Active confirmed Plan Of Treatment Pending Test Test Name Order Date ICD List 05/02/2016 Insurance Providers Payer Name Payer Address Payer Phone Subscriber Number Group Number Insured Name Patient Relationship to Insured Coverage Start Date Coverage End Date Medicare [employer] [address] [place] [phone] [id number] JEAN CAMPOS Self - patient is the insured 7 Medicaid- [place] ATTN: [employer]IGINAL P[employer] CLAIMS SUBMISSION S [address] [place] [phone] [id number] JEAN CAMPOS Self - patient is the insured A[employer]na \T\ Aetna/ [employer] e [address] [place] [id number] JEAN CAMPOS Self - patient is [...] rendon/Juanita 08/2017 Heart and Breathing Issues // [facility] 06/2018
== END 2025-09-18 15:18 | disposition home or self-care (01) ==
LOC: HO.HOS 13:52
PROVIDERS: PCP Physician Assistant Medical; Visit Provider Physician Assistant
DX: Z96.641 Presence of right artificial hip joint (principal)
CPT/HCPCS: 99024

== ENCOUNTER → 2025-09-18 13:51 | Outpatient (BNVA) | payer MEDICARE, SELFPAY | PROVIDERS: PCP Physician Assistant Medical; Visit Provider Physician Assistant | DX: Z47.1 Aftercare following joint replacement surgery (principal); Z96.641 Presence of right artificial hip joint | CPT/HCPCS: 99212 ==